=== PATIENT | female | born 1955 | race Caucasian/White ===

== ENCOUNTER → 2020-08-02 | Outpatient (CLI) | payer MEDICARE, OTHER ==
[2020-08-02 09:31] LABS: ALANINE AMINOTRANSFERASE 37 U/L (12-78); ANION GAP 6 mmol/L (5-15); CALCIUM 9.4 mg/dL (8.5-10.1); CHLORIDE 110 mmol/L (98-107); CHOLESTEROL, TOTAL 195 mg/dL (140-239); CREATININE 0.97 mg/dL (0.55-1.02)
[2020-08-02 09:34] LABS: ALKALINE PHOSPHATASE 92 U/L (45-117); BILIRUBIN,TOTAL 0.7 mg/dL (0.2-1.0); HDL CHOL % 33 % (28-40); HDL CHOLESTEROL (DIRECT) 64 mg/dL (40-60); LDL CHOLESTEROL,CALCULATED 109 mg/dL (54-169); LDL/HDL RATIO 1.7 (0.5-3.0); TOTAL PROTEIN 7.6 g/dL (6.4-8.2); TRIGLYCERIDES 112 mg/dL (50-200); VLDL CHOLESTEROL 22 mg/dL (0-25)
== END | disposition home or self-care (01) ==
LOC: LAB 09:06
PROVIDERS: ATTEND Family Medicine
DX: E78.5 Hyperlipidemia, unspecified (principal)
CPT/HCPCS: 36415; 80053; 80061

== ENCOUNTER → 2020-10-30 | Outpatient (CLI) | payer MEDICARE, OTHER ==
[2020-10-30 09:40] LABS: ALBUMIN 3.8 g/dL (3.4-5.0); ANION GAP 6 mmol/L (5-15); CALCIUM 9.2 mg/dL (8.5-10.1); CHLORIDE 110 mmol/L (98-107)
[2020-10-30 09:43] LABS: ALANINE AMINOTRANSFERASE 33 U/L (12-78); ALKALINE PHOSPHATASE 85 U/L (45-117); BILIRUBIN,TOTAL 0.6 mg/dL (0.2-1.0); CHOL/HDL RATIO 2.9; CHOLESTEROL, TOTAL 171 mg/dL (140-239); CREATININE 0.97 mg/dL (0.55-1.02); HDL CHOL % 34 % (28-40); HDL CHOLESTEROL (DIRECT) 58 mg/dL (40-60); LDL CHOLESTEROL,CALCULATED 88 mg/dL (54-169); LDL/HDL RATIO 1.5 (0.5-3.0); TOTAL PROTEIN 7.5 g/dL (6.4-8.2); TRIGLYCERIDES 124 mg/dL (50-200); VLDL CHOLESTEROL 25 mg/dL (0-25)
== END | disposition home or self-care (01) ==
LOC: LAB 09:12
PROVIDERS: ATTEND Family Medicine
DX: E78.5 Hyperlipidemia, unspecified (principal)
CPT/HCPCS: 36415; 80053; 80061

== ENCOUNTER 2021-02-20 15:18 | Emergency (ER) | payer MEDICARE, OTHER ==
[~2021-02-20] VITALS: Ht 157.5 cm; Wt 68.3 kg
[2021-02-20] MEDS ORDERED: ALBUTEROL INHALER INH (15:26)
[2021-02-20] MEDS ORDERED: ATOR20TA37 PO (15:26)
[2021-02-20] MEDS ORDERED: OMEP-110 PO (15:26)
--- NOTE | 2021-02-20 16:03 | NUR ---
cc of rectal bleeding for a few months, pt was advised by pcp to come get seen in ED. pt states bleeding is bright red and happens after wipping and without. pt denies taking blood thinners, nsaids, and etoh. pt has no c/o fatigue or sob. hx of hemorrhoids 20 years ago. at bedside.
[2021-02-20 16:07] LABS: BASOPHILS % (AUTO) 2 % (0-1); EOSINOPHILS % (AUTO) 1 % (1-7); LYMPHOCYTES % (AUTO) 32 % (22-44); MD NO; MEAN CORPUSCULAR HEMOGLOBIN 31.9 pg (27.0-34.8); MEAN CORPUSCULAR HGB CONC 33.9 g/dL (32.4-35.8); MEAN PLATELET VOLUME 7.6 fL (7.4-10.4); MONOCYTES % (AUTO) 13 % (2-9); NEUTROPHILS % (AUTO) 52 % (42-75); PLATELET COUNT 246 x10^3/uL (130-400); RED BLOOD COUNT 4.31 x10^6/uL (3.82-5.3); RED CELL DISTRIBUTION WIDTH 13.1 % (9.6-15.2)
[2021-02-20 16:20] LABS: ALANINE AMINOTRANSFERASE 36 U/L (12-78); ALBUMIN 3.7 g/dL (3.4-5.0); ANION GAP 6 mmol/L (5-15); CALCIUM 8.9 mg/dL (8.5-10.1); CHLORIDE 111 mmol/L (98-107); CREATININE 0.82 mg/dL (0.55-1.02)
[2021-02-20 16:22] LABS: ALKALINE PHOSPHATASE 85 U/L (45-117); BILIRUBIN,TOTAL 0.5 mg/dL (0.2-1.0); TOTAL PROTEIN 7.2 g/dL (6.4-8.2)
[2021-02-20 16:50] VITALS: BP 119/68
== END 2021-02-20 16:52 | disposition home or self-care (01) ==
LOC: ED 16:40
DX: K64.4 Residual hemorrhoidal skin tags (principal); E78.00 Pure hypercholesterolemia, unspecified; K21.9 Gastro-esophageal reflux disease without esophagitis; J45.909 Unspecified asthma, uncomplicated
CPT/HCPCS: 36415; 80053; 85025; 99283

== ENCOUNTER 2021-04-18 07:24 | Outpatient (CLI) | payer MEDICARE, OTHER ==
[~2021-04-18 07:24] MED LIST: ALBUTEROL INHALER INH; ATOR20TA37 PO; OMEP-110 PO
[2021-04-18 07:51] LABS: ALANINE AMINOTRANSFERASE 43 U/L (12-78); ALBUMIN 3.9 g/dL (3.4-5.0); ANION GAP 5 mmol/L (5-15); CALCIUM 9.4 mg/dL (8.5-10.1); CHLORIDE 110 mmol/L (98-107); CREATININE 0.97 mg/dL (0.55-1.02)
[2021-04-18 07:54] LABS: ALKALINE PHOSPHATASE 85 U/L (45-117); BILIRUBIN,TOTAL 0.7 mg/dL (0.2-1.0); CHOL/HDL RATIO 3.6; CHOLESTEROL, TOTAL 200 mg/dL (140-239); HDL CHOL % 28 % (28-40); HDL CHOLESTEROL (DIRECT) 56 mg/dL (40-60); LDL CHOLESTEROL,CALCULATED 113 mg/dL (54-169); TOTAL PROTEIN 7.5 g/dL (6.4-8.2); TRIGLYCERIDES 157 mg/dL (50-200); VLDL CHOLESTEROL 31 mg/dL (0-25)
== END 2021-04-18 23:59 | disposition home or self-care (01) ==
LOC: LAB 07:24
PROVIDERS: ATTEND Family Medicine
DX: E78.5 Hyperlipidemia, unspecified (principal)
CPT/HCPCS: 36415; 80053; 80061